=== PATIENT | male | born 1990 | race Two or more races ===

== ENCOUNTER 2022-07-26 00:09 | Emergency (ER) | payer BC, SELFPAY ==
[2022-07-26 00:10] VITALS: BP 170/114; PULSE 68; RESP 16; TEMP 36.4; O2SAT 98; BMI 30.9
[2022-07-26 00:19] VITALS: BP 151/89; PULSE 85; RESP 18; O2SAT 98
--- NOTE | 2022-07-26 00:46 | EDS_ITS ---
HPI History of Present Illness Chief Complaint: General Illness Informant: patient Onset/Context/Timing Onset: Hours (1) Context: Sudden Onset Timing: Continuous Quality: spinning/dizzy Location: head Current Severity: Mild Maximum Severity: Severe Worsened by: turning head Relieved by: remaining still Associated Symptoms Associated Symptoms: Headache, blurry vision Narrative Narrative: Patient speaks Armenian, most of the history is obtained through cell phone tadeo and speaking [id number] through it. He works at a local factory, had an episode similar to this a couple months ago, but basically was working at his machine and started feeling dizzy all of a sudden. He does not remember if he did any particular motions or anything in particular to trigger it. He was having a headache which is still there, it is occipital, he took Tylenol it seemed to help everything, he does not feel dizzy right now but did notice it. No ear symptoms. No recent cold that he remembers. States has a history of blood pressure that is elevated not infrequently but he takes no medication for it. [facility] Medical History Hypertension Home Medications meclizine 25 mg tablet 25 mg PO Q8H PRN PRN Dizziness #16 tabs 07/26/22 [Rx Last Taken Unknown] Allergy/AdvReac Type Severity Reaction Status Date / Time No Known Allergies Allergy Verified 07/26/22 00:30 Social History Smoking Status: Never smoker ROS ROS ED Constitutional Constitutional ED: Denies chills or fever(s) Eyes Eyes: Reports blurry vision bilateral (Resolved now) and change in vision; Denies diplopia ENT ENT ED: Reports as per HPI and vertigo; Denies rhinorrhea or sore throat Cardiovascular Cardiovascular: Denies chest pain or palpitations Respiratory/Chest Respiratory/Chest: Denies cough or dyspnea Gastrointestinal Gastrointestinal: Denies abdominal pain, diarrhea, nausea or vomiting Genitourinary Genitourinary ED: Denies dysuria or hematuria Musculoskeletal Musculoskeletal: Denies back pain or neck pain Integumentary Denies abscess or rash Neurologic Neurologic: Reports headache(s) and vertigo; Denies paresthesias or weakness Psychiatric Psychiatric: Denies anxiety or suicidal thoughts EXAM Physical Exam Const Vital Signs: 07/26/22 00:10 07/26/22 00:19 07/26/22 00:19 Temperature 97.6 F L Temperature Source Temporal Pulse Rate 68 85 Respiratory Rate 16 18 Respiratory Effort Normal Respiratory Pattern Normal Blood Pressure 170/114 H 151/89 H Blood Pressure Mean 132 109 Pulse Ox 98 98 Oxygen Delivery Method Room Air Room Air Positive well nourished and well developed General Appearance ED: well developed and NAD HEENT Reports moist mucous membranes HEENT Narrative: Left TM with slight injection but no effusion or perforation. Right TM normal. EAC normal bilaterally. normocephalic and atraumatic Eyes PERRL and EOMs intact bilaterally Neck full ROM and supple Resp normal respiratory effort and clear to auscultation bilaterally Cardio regular rate, regular rhythm and no murmurs GI non-tender and non-distended Auscultation: normoactive bowel sounds Palpation: soft Back/Spine no CVA tenderness General Back: other FROM Extremity normal to inspection General Extremety ED: Negative for edema, pulses abnormal or tenderness General Extremity: Negative for edema or pulses abnormal Neuro oriented x3, CN's II-XII intact bilaterally and no sensory deficits noted Neuro Narrative: Normal [id number] and [id number] bilaterally. No aphasia. Sensorium / Orientation: awake and alert Motor Exam: strength 5/5 throughout Psych mental status grossly normal Skin no rashes or lesions noted and no wounds MDM MDM MDM Narrative Medical decision making narrative: Basic labs and CT head negative/normal. He was given clonidine and meclizine while we were awaiting work-up. He felt better. I was able to have him turn his head without any dizziness and his headache is completely resolved. Repeat blood pressure 144/91. I am going to prescribe him meclizine and refer him to a PCP locally, I am going to hold off on prescribing him any blood pressure medication since we had a measurement when he was feeling poorly and it may be better to trend this and to have his blood pressure measured when he is as ymptomatic. He is comfortable with that plan. Discussed through automotive parts interpreter. Referred to Dr. Lorenzana who is next on the unassigned list. Lab Data Attestation: I reviewed the patient's lab results. Labs: Laboratory Results - last 24 hr 07/26/22 07/26/22 00:54 00:54 WBC 8.3 RBC 5.16 Hgb 14.7 Hct 44.0 MCV 85.3 MCH 28.5 MCHC 33.4 RDW Std Deviation 35.8 RDW Coeff of Charan 12.4 Plt Count 269 MPV 10.7 Immature Gran % (Auto) 0.200 Neut % (Auto) 57.8 Lymph % (Auto) 31.5 [place] % (Auto) 5.9 Eos % (Auto) 4.0 Baso % (Auto) 0.6 Absolute Neuts (auto) 4.8 Absolute Lymphs (auto) 2.62 Sodium 142 Potassium 3.9 Chloride 106 Carbon Dioxide 30.0 Anion Gap 6 BUN 14 Creatinine 0.78 Estim Creat Clear Calc 133.97 Est GFR (MDRD) Af Amer 150 Est GFR (MDRD) Non-Af 124 BUN/Creatinine Ratio 17.9 Glucose 79 Calcium 9.2 Radiography Diagnostic Testing: Clinical Impression(s) from Imaging Studies Brain CT 07/26/22 00:46 IMPRESSION: Normal unenhanced CT scan of the brain. Electronically Signed: Kendra Carrillo MD at 1:46 EDT , Rhythm Strip Rhythm Strip: Sinus Rhythm Rate: 70 Ectopy: None Discharge Plan Triage Chief Complaint: General Illness ED Provider: Salvador Ferrer Dx/Rx/DC Orders Clinical Impression: Episode of hypertension, Vertigo Instructions: Hypertension Dc, ED Vertigo, Unspecified Prescriptions: New meclizine [meclizine] 25 mg tablet 25 mg PO Q8H PRN PRN (Reason: Dizziness) Qty: 16 0RF Primary Care Provider: Care Physician,No Primary Referrals: Marlen Lorenzana MD [Med Staff - Technical Inspector] - 5-7 Days NOT,DEFINED [Non-Staff] - Disposition Disposition: Home, Self Care
--- NOTE | 2022-07-26 00:46 | CT_ITS ---
STUDY: CT BRAIN WITHOUT CONTRAST REASON FOR EXAM: Male, 32 years old. headache, vertigo RADIATION DOSAGE (If Supplied By Facility): CTDIvol = ( 44.99 ) mGy, DLP = ( 829.85 ) mGycm TECHNIQUE: Transaxial CT imaging of the brain was performed without administration of intravenous contrast material. Individualized dose optimization techniques were used for this CT. COMPARISON: No relevant priors. FINDINGS: Normal soft tissue structures. Normal calvarium. Normal size ventricles and extra-axial spaces for the patient''s age. Normal white matter tracts of the cerebral hemispheres. Normal basal ganglia and thalami. Normal brainstem. Normal cerebellum. There is no intracranial hemorrhage. There are no findings of an acute ischemic infarction. Normal visualized paranasal sinuses. CT/Brain/Head without Contrast IMPRESSION: Normal unenhanced CT scan of the brain. Electronically Signed: Kendra Carrillo MD at 1:46 EDT ,
[2022-07-26] MEDS: Meclizine HCl 25 MG Tablet PO (01:03)
[2022-07-26] MEDS: cloNIDine HCl 0.1 MG Tablet PO (01:03)
[2022-07-26 01:08] LABS: Hemoglobin 14.7 g/dL (13.0-16.5); Mean Corp Hgb Conc 33.4 g/dL (32-36); Mean Corpuscular Hgb 28.5 pg (27.0-32.0); Mean Corpuscular Volume 85.3 fL (80-94); Red Blood Count 5.16 M/mm3 (4.6-6.2); White Blood Count 8.3 K/mm3 (4.4-11.0)
[2022-07-26 01:09] LABS: Absolute Lymphocyte Count 2.62 X10^3/uL (0.83-4.51); Absolute Neutrophil Count 4.8 X10^3/uL (2.0-7.7); Basophil% 0.6 % (0-1); Lymphocyte # 2.62 X10^3/ul (0.83-4.51); Lymphocyte % 31.5 % (19-41); Mean Platelet Vol. 10.7 fl (6.2-12.0); Monocyte% 5.9 % (0-10); Neutrophil # 4.82 X10^3/uL (2.7-7.7); Neutrophil % 57.8 % (47-70); Platelet Count 269 K/mm3 (150-450); RBC Distribution Width CV 12.4 % (11.6-14.6); RBC Distribution Width SD 35.8 fl (35.1-43.9)
[2022-07-26 01:10] LABS: Basophil# 0.05 X10^3/uL; Eosinophil# 0.33 X10^3/uL; Monocyte# 0.49 X10^3/uL
[2022-07-26 01:24] LABS: BUN 14 mg/dL (7-18); BUN/Creat Ratio 17.9 RATIO (10-20); Calcium,Total 9.2 mg/dL (8.5-10.1); Chloride 106 mmol/L (98-107); Creatinine, Serum 0.78 mg/dL (0.70-1.30); EST Glomerular Filtration Rate 124 mL/min (>60); Est Glom Filt Rate - Afr Amer 150 mL/min (>60); Estimated Creatinine Clearance 133.97 ml/min; Glucose 79 mg/dL (74-106); Potassium 3.9 mmol/L (3.5-5.1); Sodium Level 142 mmol/L (136-145)
[2022-07-26 01:25] LABS: Anion Gap 6 (5-15)
[2022-07-26 02:07] VITALS: BP 144/90; PULSE 85; O2SAT 100
== END 2022-07-26 02:08 | disposition home or self-care (01) ==
PROVIDERS: Emergency Provider Emergency Medicine; Visit Provider Emergency Medicine
DX: R42 Dizziness and giddiness (principal); R51.9 Headache, unspecified; I10 Essential (primary) hypertension
CPT/HCPCS: 70450; 80048; 85025; 99283; A4216